=== PATIENT | male | born 1995 | race Caucasian/White ===

== ENCOUNTER 2018-10-18 20:04 | Emergency (ER) | payer SELFPAY ==
[2018-10-18] MEDS ORDERED: Ondansetron ODT 4 MG TAB ONE (20:24)
[2018-10-18] MEDS ORDERED: Benzonatate 100 MG CAP ONE (20:24)
[2018-10-18 20:53] LABS: #Basophils 0.1 thou/uL (0.0-0.2); #Eosinphils 0.3 thou/uL (0.0-0.7); #Lymphocytes 2.6 thou/uL (1.20-3.40); #Monocytes 0.8 thou/uL (0.11-0.59); #Neutrophils 1.7 thou/uL (1.40-6.50); %Basophils 1.9 % (0.0-1.0); %Eosinophils 5.2 % (0.0-10.0); %Lymphocytes 47.3 % (21.0-51.0); %Monocytes 14.3 % (0.0-10.0); %Neutrophils 31.3 % (42.0-75.0); Hemoglobin 15.3 g/dL (14.0-18.0); Mean Corpuscular HGB CONC 34.3 g/dL (32.0-36.0); Mean Corpuscular Hemoglobin 29.6 pg (27.0-31.0); Mean Corpuscular Volume 86.5 fL (78.0-98.0); Mean Platelet Volume 7.9 fL (7.4-10.4); Platelet Count 250 thou/uL (130-400); RBC Distribution Width 11.5 % (11.5-14.5); Red Blood Cell (RBC) Count 5.15 mill/uL (4.70-6.10); White Blood Cell (WBC) Count 5.6 thou/uL (4.8-10.8)
[2018-10-18 21:00] LABS: ALT (SGPT) 48 U/L (8-55); AST (SGOT) 36 U/L (5-34); Albumin 4.5 g/dL (3.5-5.0); Alkaline Phosphatase 107 U/L (40-150); Anion Gap 13 mmol/L (10-20); BUN (Urea Nitrogen) 12 mg/dL (8.9-20.6); Bilirubin, Total 0.5 mg/dL (0.2-1.2); Calc. Creatinine Clearance 0 mL/min (70-130); Calcium 9.2 mg/dL (7.8-10.44); Carbon Dioxide 26 mmol/L (22-29); Chloride 104 mmol/L (98-107); Estimated GFR-MDRD Greater than 90; Globulin 2.9 g/dL (2.4-3.5); Glucose 96 mg/dL (70-105); Potassium 3.7 mmol/L (3.5-5.1); Protein, Total 7.4 g/dL (6.0-8.3); Sodium 139 mmol/L (136-145)
[2018-10-18] MEDS ORDERED: methylPREDNISolone Acetate 40 mg/ml Vial ONE (21:18)
== END 2018-10-18 21:28 | disposition home or self-care (01) ==
LOC: BURERS 20:04
DX: J30.9 Allergic rhinitis, unspecified (principal); R11.2 Nausea with vomiting, unspecified; F17.290 Nicotine dependence, other tobacco product, uncomplicated
CPT/HCPCS: 36415; 80053; 85025; 96372; J1030; Q0162

== ENCOUNTER 2019-12-03 20:42 | Emergency (ER) | payer SELFPAY | END 2019-12-03 21:04 | disposition home or self-care (01) | LOC: BURERS 20:42 | DX: R19.7 Diarrhea, unspecified (principal); R10.9 Unspecified abdominal pain; R11.2 Nausea with vomiting, unspecified; F17.290 Nicotine dependence, other tobacco product, uncomplicated | CPT/HCPCS: 96372; 99283; J0500 ==

== ENCOUNTER 2020-11-18 16:42 | Emergency (ER) | payer BC ==
[2020-11-18] MEDS ORDERED: Ondansetron ODT 4 MG TAB ONE (17:44)
[2020-11-18] MEDS ORDERED: Dexamethasone 10 MG/ML VIAL ONE (17:44)
[2020-11-19 07:24] LABS: SARS-CoV-2 PCR by NAA Not Detected (NotDetected)
== END 2020-11-18 17:53 | disposition home or self-care (01) ==
LOC: BURERS 16:42
DX: B34.9 Viral infection, unspecified (principal); Z20.822 Contact with and (suspected) exposure to COVID-19; J45.909 Unspecified asthma, uncomplicated
CPT/HCPCS: 87081; 87430; 87635; 99283; J1100; Q0162; U0003; U0005

== ENCOUNTER 2021-03-18 17:47 | Emergency (ER) | payer BC | END 2021-03-18 18:32 | disposition home or self-care (01) | LOC: BURERS 17:47 | DX: S93.402A Sprain of unspecified ligament of left ankle, initial encounter (principal); J45.909 Unspecified asthma, uncomplicated; F17.290 Nicotine dependence, other tobacco product, uncomplicated; X50.1XXA Overexertion from prolonged static or awkward postures, initial encounter ==

== ENCOUNTER 2021-11-19 14:53 | Emergency (ER) | payer BC ==
[2021-11-19] MEDS ORDERED: Ondansetron ODT 4 MG TAB ONE (15:29)
== END 2021-11-19 15:45 | disposition home or self-care (01) ==
LOC: BURERS 14:53
DX: R19.7 Diarrhea, unspecified (principal); J45.909 Unspecified asthma, uncomplicated; F17.290 Nicotine dependence, other tobacco product, uncomplicated; Z87.19 Personal history of other diseases of the digestive system
CPT/HCPCS: 99283; Q0162

== ENCOUNTER 2022-10-18 15:29 | Emergency (ER) | payer BC ==
[2022-10-18] MEDS ORDERED: predniSONE 20 MG TAB ONE (17:24)
[2022-10-18] MEDS ORDERED: Amoxicillin/Potassium Clav 875 MG TAB ONE (17:24)
== END 2022-10-18 17:31 | disposition home or self-care (01) ==
LOC: BURERS 15:29
DX: J02.9 Acute pharyngitis, unspecified (principal); F17.290 Nicotine dependence, other tobacco product, uncomplicated
CPT/HCPCS: 87081; 87430; 87804; 99283; J7512